=== PATIENT | female | born 1985 | race Caucasian/White ===

== ENCOUNTER 2023-02-08 09:47 | Inpatient (IN) | payer OTHER ==
[~2023-02-08] VITALS: Ht 165.1 cm; Wt 69.9 kg
[2023-02-08 09:48] VITALS: BP 215/90
--- NOTE | 2023-02-08 10:00 | NUR ---
37 yo/f presents to ED w c/o gen weakness, chest pain int, BL "shocking pain 7/10" to hands with occasional radiations to rest of the body, +dizzyness, +sob, + nausea, since yesterday. no ongoing chest pain today. denies fevers, chils, v/d, urinary symptoms. pt started dialysis today but didn't complete it, last completed dialysis was monday. pt was given clonidine at 0840 during dialysis today. pmh: renal failure R arm shunt (m,w,f), DM, legally blind allergies: denies
[2023-02-08 11:15] LABS: BASOPHILS # (AUTO) 0.1 K/uL (0.00-0.22); BASOPHILS % (AUTO) 1.7 % (0.0-2.0); EOSINOPHILS # (AUTO) 0.2 K/uL (0-0.4); EOSINOPHILS % (AUTO) 6.2 % (0.0-4.0); HEMATOCRIT 31.2 % (36-48); HEMOGLOBIN 10.6 g/dL (12.0-16.0); LYMPHOCYTES # (AUTO) 0.4 K/uL (2.5-16.5); LYMPHOCYTES % (AUTO) 11.6 % (20.5-51.1); MEAN CORPUSCULAR HEMOGLOBIN 34 pg (27-31); MEAN CORPUSCULAR HGB CONC 34 g/dL (33-37); MEAN CORPUSCULAR VOLUME 98.8 fL (80-94); MONOCYTES # (AUTO) 0.3 K/uL (0.8-1.0); MONOCYTES % (AUTO) 8.4 % (1.7-9.3); NEUTROPHILS # (AUTO) 2.7 K/uL (1.8-7.7); NEUTROPHILS % (AUTO) 72.1 % (42.2-75.2); PLATELET COUNT (AUTO) 154 K/uL (140-450); RED BLOOD CELL COUNT(AUTO) 3.16 MIL/uL (4.20-5.40); RED CELL DISTRIBUTION WIDTH 14.2 % (11.6-13.7); WHITE BLOOD COUNT (AUTO) 3.8 K/uL (4.8-10.8)
--- NOTE | 2023-02-08 11:31 | NUR ---
pt at bedside.
[2023-02-08 11:57] LABS: ALBUMIN 3.8 g/dL (3.4-5.0); ANION GAP 12.1 (8-16); CARBON DIOXIDE 31.8 mmol/L (21-32); POTASSIUM 3.9 mmol/L (3.5-5.1); TOTAL BILIRUBIN 0.7 mg/dL (0.0-1.0)
[2023-02-08 12:10] LABS: APPEARANCE,URINE CLEAR (CLEAR); BILIRUBIN,URINE NEGATIVE (NEGATIVE); BLOOD, URINE 1+ (NEGATIVE); COLOR,URINE YELLOW (YELLOW); LEUKOCYTE ESTERASE ,URINE 1+ (NEGATIVE); NITRITE, URINE NEGATIVE (NEGATIVE); UGLUCOSE NEGATIVE (NEGATIVE)
[2023-02-08 12:36] LABS: CREATININE 8.1 mg/dL (0.6-1.3)
[2023-02-08 12:42] LABS: RBC,URINE 0-5 /HPF (0-5)
[2023-02-08 12:51] LABS: LIPASE 184 U/L (73-393)
--- NOTE | 2023-02-08 13:30 | NUR ---
pt does not know her home meds, and is unable to access them at this time reports her list are at home.
[2023-02-08] MEDS ORDERED: NIFEdipine 60 MG TABER PO SCH (14:45)
[2023-02-08] MEDS: hydrALAZINE 20 MG/ML VIAL IVP PRN (14:58)
--- NOTE | 2023-02-08 15:33 | NUR ---
Pt reports feeling tired, but otherwise denies ongoing chest pain or other symptoms at this time.
--- NOTE | 2023-02-08 15:50 | NUR ---
Patient will be admitted to care of DR. SULLIVAN. Admited to TELE. Will go to [id number]. Belongings list completed. Report to ALESSIA CABRERA.
--- NOTE | 2023-02-08 16:06 | NUR ---
PATIENT HAS BEEN SCREENED AND CATEGORIZED MODERATE NUTRITION RISK. PATIENT WILL BE SEEN WITHIN 3-5 DAYS OF ADMISSION. REVIEWED BY JAY DAI RD
[2023-02-08] MEDS ORDERED: LORazepam 2 MG/ML VIAL IVP PRN (16:15)
[2023-02-08] MEDS ORDERED: MORPHINE SULFATE 2 MG/ML SYR IVP PRN (16:15)
[2023-02-08] MEDS ORDERED: ACETAMINOPHEN 325 MG TAB PO PRN (16:15)
[2023-02-08] MEDS ORDERED: DOCUSATE SODIUM 100 MG GELCAP PO PRN (16:15)
[2023-02-08] MEDS ORDERED: ONDANSETRON 4 MG/2 ML VIAL IVP PRN (16:15)
[2023-02-08] MEDS ORDERED: ZOLPIDEM 10 MG TAB PO PRN (16:15)
[2023-02-08] MEDS ORDERED: MAG SULF 2000 MG/WATER PREMIX 50 ML IV PRN (16:15)
[2023-02-08] MEDS ORDERED: POTASSIUM CHLORIDE 10 MEQ TABER PO PRN (16:15)
[2023-02-08 16:20] VITALS: BP 144/72
[2023-02-08] MEDS: BLOOD GLUCOSE MONITORING 1 DEV DEV FS SCH ×2 (16:30→21:55)
[2023-02-08] MEDS ORDERED: DEXTROSE 50% 50 ML SYR IVP PRN (17:10)
--- NOTE | 2023-02-08 19:30 | NUR ---
RECEIVED REPORT FROM DAY SHIFT NURSE ALESSIA FOR CONTINUITY OF CARE. PATIENT IS A&O X4. PATIENT IS ON ROOM AIR, BREATHING IS NORMAL WITH SYMMETRICAL RISE AND FALL OF CHEST. IV IS A 22G LAC, NO FLUIDS RUNNING AT THIS TIME. PATIENT IS LYING IN BED IN SEMI-FOWLERS POSITION, FAMILY IS AT BEDSIDE. BED IS IN LOWEST POSITION, WHEELS LOCKED, CALL LIGHT IN PLACE. WILL CONTINUE TO OBSERVE PATIENT.
[2023-02-08 20:00] VITALS: BP 124/55
[2023-02-08] MEDS: hydrALAZINE 25 MG TAB PO SCH (20:21)
[2023-02-08] MEDS: INSULIN LISPRO SLIDING SCALE 100 UNITS/ML VIAL SUBQ PRN (21:56)
[2023-02-09] VITALS: BP 137/62
--- NOTE | 2023-02-09 01:30 | NUR ---
PATIENT HAS BEEN SLEEPING THROUGHOUT THE NIGHT. PATIENT WAS WOKEN UP FOR 0000 VITALS AND ASKED TO STAND. ASSISTED PATIENT TO HER FEET AND HELPED HOLD HER UP WHILE SHE STOOD ON BOTH FEET. PATIENT STATED THAT IT FELT GOOD TO BE ABLE TO STRETCH. PATIENT STOOD FOR ABOUT 5 MINUTES WHILE I HELPED PROVIDE HER SUPPORT SO SHE WOULDN'T FALL. PATIENT WAS THEN HELPED BACK INTO BED. PATIENT WAS COVERED BACK UP AND ROLLED OVER TO GO TO SLEEP. WILL CONTINUE TO OBSERVE PATIENT.
[2023-02-09 04:00] VITALS: BP 156/77
[2023-02-09 06:54] LABS: BASOPHILS # (AUTO) 0.1 K/uL (0.00-0.22); BASOPHILS % (AUTO) 1.2 % (0.0-2.0); EOSINOPHILS # (AUTO) 0.2 K/uL (0-0.4); EOSINOPHILS % (AUTO) 4.7 % (0.0-4.0); HEMOGLOBIN 10.6 g/dL (12.0-16.0); LYMPHOCYTES # (AUTO) 0.7 K/uL (2.5-16.5); LYMPHOCYTES % (AUTO) 14.6 % (20.5-51.1); MEAN CORPUSCULAR HEMOGLOBIN 34 pg (27-31); MEAN CORPUSCULAR HGB CONC 34 g/dL (33-37); MEAN CORPUSCULAR VOLUME 98.8 fL (80-94); MONOCYTES # (AUTO) 0.5 K/uL (0.8-1.0); MONOCYTES % (AUTO) 10.6 % (1.7-9.3); NEUTROPHILS # (AUTO) 3.5 K/uL (1.8-7.7); NEUTROPHILS % (AUTO) 68.9 % (42.2-75.2); PLATELET COUNT (AUTO) 174 K/uL (140-450); RED BLOOD CELL COUNT(AUTO) 3.14 MIL/uL (4.20-5.40); RED CELL DISTRIBUTION WIDTH 14.2 % (11.6-13.7); WHITE BLOOD COUNT (AUTO) 5.1 K/uL (4.8-10.8)
[2023-02-09 06:56] LABS: ANION GAP 15.9 (8-16); CARBON DIOXIDE 28.8 mmol/L (21-32); POTASSIUM 4.7 mmol/L (3.5-5.1)
[2023-02-09 07:13] LABS: CREATININE 9.8 mg/dL (0.6-1.3)
--- NOTE | 2023-02-09 07:15 | NUR ---
PATIENT CONTINUED TO SLEEP THROUGHOUT THE NIGHT. BS WAS OBTAINED; BS WAS 56. GAVE PATIENT APPLE JUICE. WILL ENDORSE TO DAY SHIFT NURSE TO CHECK BS AGAIN IN A FEW MINUTES.
[2023-02-09] MEDS: BLOOD GLUCOSE MONITORING 1 DEV DEV FS SCH ×4 (07:17→20:23)
--- NOTE | 2023-02-09 07:50 | NUR ---
ENDORSED TO DAY SHIFT NURSE MAUREEN FOR CONTINUITY OF CARE. PATIENT IS STABLE.
--- NOTE | 2023-02-09 07:51 | NUR ---
RECEIVED REPORT FROM FAMILY LITERACY COORDINATOR NURSE FOR CONTINUITY OF CARE. PT IS AWAKE AND WITH NO SIGNS OF DISTRESS. CALL BUTTON WITHIN REACH. WILL CONTINUE TO MONITOR.
[2023-02-09 08:00] VITALS: BP 156/81
[2023-02-09] MEDS: NIFEdipine 60 MG TABER PO SCH (08:19)
[2023-02-09] MEDS: hydrALAZINE 25 MG TAB PO SCH ×2 (08:19→20:27)
[2023-02-09] MEDS: LABETALOL 20 MG/4 ML VIAL IVP PRN (11:36)
[2023-02-09 16:00] VITALS: BP 159/74
--- NOTE | 2023-02-09 19:36 | NUR ---
ENDORSED TO VIDEOTAPE RECORDING ENGINEER NURSE FOR CONTINUITY OF CARE. PT IS STABLE, NO SIGNS OF DISTRESS, CALL BUTTON WITHIN REACH.
[2023-02-09 20:00] VITALS: BP 143/62
--- NOTE | 2023-02-09 20:21 | NUR ---
ALL SCHEDULED DUE MEDICATIONS ADMINISTERED ORDERED. PATIENT AWAKE SITTING ON THE BED. NO ACUTE DISTRESS NOTED. SAFETY PRECAUTIONS ARE IN PLACE. PATIENT ABLE TO AMBULATE. CALL LIGHT WITHIN REACH. WILL CONTINUE TO MONITOR.
[2023-02-09] MEDS: INSULIN LISPRO SLIDING SCALE 100 UNITS/ML VIAL SUBQ PRN (20:23)
[2023-02-10 04:00] VITALS: BP 138/74
[2023-02-10] MEDS: BLOOD GLUCOSE MONITORING 1 DEV DEV FS SCH ×2 (06:34→11:42)
--- NOTE | 2023-02-10 07:18 | NUR ---
RECEIVED REPORT FROM NIGHTSHIFT NURSE STEVEN FOR CONTINUITY OF CARE. PT IN STABLE CONDITION, CURRENTLY SLEEPING WITH NO SIGNS OF PAIN OR DISTRESS NOTED AT THIS TIME.
--- NOTE | 2023-02-10 07:18 | NUR ---
ALL NEEDS MET THROUGHOUT THE SHIFT. GAVE BEDSIDE REPORT TO DEBORAH JARA FOR CONTINUITY OF CARE. PATIENT STABLE.
[2023-02-10 08:00] VITALS: BP 175/69
--- NOTE | 2023-02-10 08:10 | NUR ---
TUFTING SUPERVISOR MAYTE REPORTED PT BP 175/69 HR 76. NOTIFIED HD NURSE FOR CLARIFICATION OF ETA.
[2023-02-10 08:11] LABS: BASOPHILS # (AUTO) 0.1 K/uL (0.00-0.22); BASOPHILS % (AUTO) 1.9 % (0.0-2.0); EOSINOPHILS # (AUTO) 0.3 K/uL (0-0.4); EOSINOPHILS % (AUTO) 7.2 % (0.0-4.0); HEMATOCRIT 30.2 % (36-48); HEMOGLOBIN 10.2 g/dL (12.0-16.0); LYMPHOCYTES # (AUTO) 0.9 K/uL (2.5-16.5); LYMPHOCYTES % (AUTO) 23.2 % (20.5-51.1); MEAN CORPUSCULAR HEMOGLOBIN 34 pg (27-31); MEAN CORPUSCULAR HGB CONC 34 g/dL (33-37); MEAN CORPUSCULAR VOLUME 99.1 fL (80-94); MONOCYTES # (AUTO) 0.6 K/uL (0.8-1.0); NEUTROPHILS # (AUTO) 2.1 K/uL (1.8-7.7); NEUTROPHILS % (AUTO) 53.7 % (42.2-75.2); PLATELET COUNT (AUTO) 164 K/uL (140-450); RED BLOOD CELL COUNT(AUTO) 3.05 MIL/uL (4.20-5.40); RED CELL DISTRIBUTION WIDTH 14.3 % (11.6-13.7)
--- NOTE | 2023-02-10 08:30 | NUR ---
PER HD NURSE, PT OKAY TO RECEIVED ONE BP MEDICATION PRIOR TO HD.
[2023-02-10 08:42] LABS: ANION GAP 15.1 (8-16); CARBON DIOXIDE 27.1 mmol/L (21-32); POTASSIUM 4.2 mmol/L (3.5-5.1)
[2023-02-10 08:46] LABS: CREATININE 7.9 mg/dL (0.6-1.3)
[2023-02-10] MEDS: hydrALAZINE 25 MG TAB PO SCH (09:00)
[2023-02-10] MEDS: NIFEdipine 60 MG TABER PO SCH (09:00)
[2023-02-10] MEDS: hydrALAZINE 20 MG/ML VIAL IVP PRN (09:12)
--- NOTE | 2023-02-10 10:30 | NUR ---
HD NURSE ARRIVED, AT THE BEDSIDE. REASSESSED PT'S BP, NOW 139/64 HR 84.
[2023-02-10 11:06] VITALS: BP 139/64
[2023-02-10] MEDS: LABETALOL 20 MG/4 ML VIAL IVP PRN (12:25)
--- NOTE | 2023-02-10 12:25 | NUR ---
HD NURSE REPORTED HIGH BLOOD PRESSURE 179/59 AND REQUESTED PRN BP MED. ADMINISTERED PRN LABETALOL VIA HD NURSE.
--- NOTE | 2023-02-10 13:55 | NUR ---
HD NURSE REPORTED COMPLETION OF HD, TOTAL 1.5L REMOVED. PT'S BP 144/58, PT DENIES ANY CHEST PAIN, DIZZINESS OR WEAKNESS.
--- NOTE | 2023-02-10 14:10 | NUR ---
PT REVIEWED AND SIGNED ALL PAPERWORK. IV WAS REMOVED AND DRESSED. PT AWAITING FOR CHANGE OF CLOTHES.
--- NOTE | 2023-02-10 14:30 | NUR ---
PT AMBULATED TO FRONT LOBBY WITH FAMILY TO POV. PT IN STABLE CONDITION.
== END 2023-02-10 14:25 | disposition home or self-care (01) | DRG 291 ==
LOC: MED 09:47 → MTU 14:02
PROVIDERS: ADMIT General Practice; ATTEND General Practice
PROC: 5A1D70Z Performance of Urinary Filtration, Intermittent, Less than 6 Hours Per Day (ICD-10-PCS; principal; 2023-02-09)
PROC: 5A1D70Z Performance of Urinary Filtration, Intermittent, Less than 6 Hours Per Day (ICD-10-PCS; 2023-02-10)
DX: I13.2 Hypertensive heart and chronic kidney disease with heart failure and with stage 5 chronic kidney disease, or end stage renal disease (principal); I50.43 Acute on chronic combined systolic (congestive) and diastolic (congestive) heart failure; N17.0 Acute kidney failure with tubular necrosis; N18.6 End stage renal disease; E44.1 Mild protein-calorie malnutrition; F41.9 Anxiety disorder, unspecified; D63.8 Anemia in other chronic diseases classified elsewhere; E11.22 Type 2 diabetes mellitus with diabetic chronic kidney disease; I16.0 Hypertensive urgency; E83.39 Other disorders of phosphorus metabolism; Z20.822 Contact with and (suspected) exposure to COVID-19; Z99.2 Dependence on renal dialysis; Z90.710 Acquired absence of both cervix and uterus
CPT/HCPCS: 36415; 71045; 80048; 80053; 81001; 82948; 83036; 83690; 83735; 83880; 84100; 84484; 85025; 87081; 87086; 93005; 99285; J0360; J1644; J1815; J3490; Q0092

== ENCOUNTER 2023-03-04 22:35 | Emergency (ER) | payer OTHER ==
[~2023-03-04] VITALS: Ht 167.6 cm; Wt 70.3 kg
--- NOTE | 2023-03-04 23:02 | NUR ---
PT TAKEN TO BED 6
--- NOTE | 2023-03-04 23:18 | NUR ---
Patient being evaluated by ELENI at bedside.
[2023-03-04 23:23] VITALS: BP 199/88
--- NOTE | 2023-03-04 23:23 | NUR ---
PT B/P 199/88. DR KNOWLES AWARE OF BP
[2023-03-04] MEDS ORDERED: cephALEXin 500 MG CAP PO ONE (23:25)
--- NOTE | 2023-03-04 23:27 | NUR ---
37YR OLD FEMALE BIB FAMILY C/O R FOOT SWELLING X 4DAYS. PT DENIES PAIN OR INJURY TO FOOT. SWELLING TO FOOT AND ANKLE. PT IS A&OX4 FAMILY AT BEDSIDE. NKDA DM HTN RENAL DISEASE
--- NOTE | 2023-03-04 23:36 | NUR ---
XRAY AT BEDSIDE
--- NOTE | 2023-03-04 23:36 | NUR ---
X-Ray at bedside.
[2023-03-04] MEDS ORDERED: CEPH-588 PO (23:55)
--- NOTE | 2023-03-05 00:13 | NUR ---
Patient discharged with v/s stable. Written and verbal after care instructions given and explained. Patient verbalized understanding. Ambulatory with steady gait. All questions addressed prior to discharge. Advised to follow up with PMD.
== END 2023-03-05 00:13 | disposition home or self-care (01) ==
LOC: MED 22:35
DX: L03.115 Cellulitis of right lower limb (principal); E11.22 Type 2 diabetes mellitus with diabetic chronic kidney disease; I12.0 Hypertensive chronic kidney disease with stage 5 chronic kidney disease or end stage renal disease; N18.6 End stage renal disease; Z99.2 Dependence on renal dialysis; Z98.890 Other specified postprocedural states
CPT/HCPCS: 73630; 99283